=== PATIENT | female | born 1980 ===

== ENCOUNTER 2021-05-10 08:38 | Outpatient (CLI) | payer BC, SELFPAY ==
--- NOTE | 2021-05-10 08:30 | RT.EKG_ITS ---
APPROVED REPORT Exam: Resting ECG Reason for Exam: New Patient Baseline Rhythm Needed Patient Location: O HR:68 bpm ECG Measurements Heart Rate 68 AXIS MT 172 P 73 QRSd 90 QRS 95 QT 381 T 57 QTc 406 Conclusion Sinus rhythm...normal P axis, V-rate 50- 99 Normal Electrocardiogram
== END 2021-05-10 08:39 | disposition home or self-care (01) ==
LOC: DI.CARD 08:40
PROVIDERS: PCP Nurse Practitioner Family; Visit Provider Internal Medicine Cardiovascular Disease
DX: E78.00 Pure hypercholesterolemia, unspecified (principal)
CPT/HCPCS: 93010